=== PATIENT | male | born 1995 | race Two or more races ===

== ENCOUNTER 2017-08-17 12:14 | Emergency (ER) | payer SELFPAY ==
[~2017-08-17] VITALS: Ht 157.5 cm; Wt 55.0 kg
[2017-08-17 17:00] VITALS: BP 101/59
== END 2017-08-17 17:17 | disposition home or self-care (01) ==
LOC: ER 12:14
DX: L25.9 Unspecified contact dermatitis, unspecified cause (principal)
CPT/HCPCS: 99283; Z7610